=== PATIENT | male | born 1945 | race Caucasian/White ===

== ENCOUNTER 2021-06-24 03:42 | Inpatient (IN) | payer MEDICARE ==
[2021-06-24] VITALS (11 sets, daily range): BP systolic 125–153; BP diastolic 72–95
[~2021-06-24] VITALS: Ht 170.2 cm; Wt 91.8 kg
[2021-06-24] MEDS ORDERED: CARV3 PO (04:08)
[2021-06-24] MEDS ORDERED: FURO40 PO (04:08)
[2021-06-24] MEDS ORDERED: LISI-892 PO (04:08)
[2021-06-24] MEDS ORDERED: ATOR40TA28 PO (04:08)
[2021-06-24] MEDS ORDERED: ASPI-1450 PO (04:08)
[2021-06-24 04:11] LABS: GLUCOSE,POINT OF CARE 102 MG/DL (70-110)
[2021-06-24 04:12] LABS: COVID AG,FIA SOURCE NASOPHARYNGEAL
[2021-06-24 04:27] LABS: BASOPHILS % (AUTO) 0.9 % (0.0-2.0); HEMATOCRIT 37.8 % (41-53); HEMOGLOBIN 12.1 g/dL (13.5-17.5); LYMPHOCYTES # (AUTO) 0.8 K/uL (1.0-4.8); LYMPHOCYTES % (AUTO) 15.9 % (22.0-44.0); MEAN CORPUSCULAR HEMOGLOBIN 27.8 pg (26.0-34.0); MEAN CORPUSCULAR HGB CONC 32.2 G/dL (31.0-37.0); MEAN CORPUSCULAR VOLUME 86 fL (80-100); MONOCYTES # (AUTO) 0.6 K/uL (0.1-1.0); MONOCYTES % (AUTO) 12.1 % (2.0-9.0); NEUTROPHILS # (AUTO) 3.6 K/uL (1.8-7.7); NEUTROPHILS % (AUTO) 69.1 % (40.0-70.0); RED BLOOD CELL COUNT(AUTO) 4.37 MIL/uL (4.50-5.90); RED CELL DISTRIBUTION WIDTH 17.5 % (11.5-14.5)
[2021-06-24 04:59] LABS: ALBUMIN 3.1 g/dL (3.4-5.0); BILIRUBIN,TOTAL 0.8 mg/dL (0.1-1.0); CALCIUM, TOTAL 9.7 mg/dL (8.8-10.5); CREATININE 1.43 mg/dL (0.60-1.30); POTASSIUM 4.1 mmol/L (3.5-5.1); TOTAL PROTEIN, SERUM 7.3 g/dL (6.4-8.2)
[2021-06-24 05:25] LABS: PLATELET COUNT (AUTO) 84 K/uL (150-450)
[2021-06-24 05:30] LABS: INR 1.3 (0.9-1.1); PROTHROMBIN TIME 13.5 SEC (9.4-11.6)
[2021-06-24] MEDS ORDERED: ACETAMINOPHEN 325 MG TABLET PO PRN ×2 (06:00→07:30)
[2021-06-24] MEDS ORDERED: 0.9% SODIUM CHLORIDE 10 ML SYRINGE IVP PRN (06:00)
[2021-06-24] MEDS ORDERED: ONDANSETRON HCL 4 MG/2 ML VIAL IVP PRN (06:00)
[2021-06-24] MEDS ORDERED: IPRATROPIUM BROMIDE 0.5 MG/2.5 ML NEB SOLUTION NEB PRN (07:30)
[2021-06-24] MEDS ORDERED: ALBUTEROL SULFATE 2.5 MG/0.5 ML NEB SOLUTION NEB PRN (07:30)
[2021-06-24] MEDS ORDERED: INSULIN LISPRO 100 UNITS/ML SQ PRN (07:45)
[2021-06-24] MEDS ORDERED: DEXTROSE 50%-WATER 25 GM/50 ML SYRINGE IVP PRN (07:45)
[2021-06-24 07:56] LABS: GLUCOSE,POINT OF CARE 92 MG/DL (70-110)
[2021-06-24] MEDS ORDERED: HEPARIN SODIUM,PORCINE 5,000 UNITS/ML VIAL SQ SCH (08:00)
[2021-06-24] MEDS: FAMOTIDINE 20 MG TABLET PO SCH (08:07)
[2021-06-24] MEDS: ASPIRIN 81 MG CHEWABLE TABLET PO SCH (08:07)
[2021-06-24] MEDS: BUMETANIDE 0.25 MG/ML 4 ML VIAL IVP SCH ×2 (08:07→21:00)
[2021-06-24] MEDS: DOCUSATE SODIUM 100 MG CAPSULE PO SCH ×2 (08:07→20:05)
[2021-06-24] MEDS ORDERED: PredniSONE 20 MG TABLET PO SCH (09:00)
[2021-06-24] MEDS ORDERED: HEPARIN SODIUM 25000 UNITS/D5W 250 ML IV SCH (11:30)
[2021-06-24] MEDS ORDERED: FUROSEMIDE 20 MG/2 ML VIAL IVP ONE (11:30)
[2021-06-24] MEDS ORDERED: CARVEDILOL 3.125 MG TABLET PO SCH (11:30)
[2021-06-24] MEDS: SODIUM CHLORIDE 0.9% 1,000 ML IV SCH (12:45)
[2021-06-24] MEDS ORDERED: SODIUM BICARBONATE 50 MEQ/50 ML VIAL ONE (12:49)
[2021-06-24] MEDS ORDERED: HEPARIN SODIUM 1000 UNITS/NS 1,000 ML ONE (12:49)
[2021-06-24] MEDS ORDERED: IOHEXOL 300 MG/ML 100 ML VIAL ONE (12:49)
[2021-06-24] MEDS ORDERED: LIDOCAINE/PF 1% 30 ML VIAL ONE (12:49)
[2021-06-24] MEDS ORDERED: IOHEXOL 300 MG/ML 50 ML VIAL ONE (12:49)
[2021-06-24] MEDS ORDERED: IOHEXOL 300 MG/ML 150 ML VIAL ONE (12:49)
[2021-06-24] MEDS ORDERED: METOPROLOL TARTRATE 5 MG/5 ML VIAL ONE (14:06)
[2021-06-24] MEDS ORDERED: FentaNYL CITRATE PF 100 MCG/2 ML VIAL ONE ×2 (14:07→14:20)
[2021-06-24] MEDS ORDERED: MIDAZOLAM HCL 2 MG/2 ML VIAL ONE ×2 (14:07→14:20)
[2021-06-24] MEDS ORDERED: NALOXONE HCL 0.4 MG/ML VIAL ONE (14:23)
[2021-06-24] MEDS ORDERED: FLUMAZENIL 0.1 MG/ML 5 ML VIAL IVP ONE (14:23)
[2021-06-24] MEDS ORDERED: MIDAZOLAM HCL 2 MG/2 ML VIAL IVP ONE ×2 (14:30)
[2021-06-24] MEDS ORDERED: FentaNYL CITRATE PF 100 MCG/2 ML VIAL IVP ONE ×2 (14:30)
[2021-06-24] MEDS ORDERED: HEPARIN SODIUM 1000 UNITS/NS 1,000 ML IARTER ONE (14:30)
[2021-06-24] MEDS ORDERED: SODIUM CHLORIDE 0.9% 500 ML IV ONE (14:30)
[2021-06-24] MEDS ORDERED: LIDOCAINE 1% 30 ML/SOD BICARB 8.4% 4 ML SQ ONE (14:30)
[2021-06-24] MEDS ORDERED: IOHEXOL 300 MG/ML 150 ML VIAL IARTER ONE (14:30)
[2021-06-24 15:01] LABS: GLUCOMETER DEV NAME(LOC) 5N.1C; GLUCOSE,POINT OF CARE 89 MG/DL (70-110)
[2021-06-24 18:46] LABS: GLUCOMETER DEV NAME(LOC) 5N.1C; GLUCOSE,POINT OF CARE 76 MG/DL (70-110)
[2021-06-24] MEDS: ATORVASTATIN CALCIUM 40 MG TABLET PO SCH (20:05)
[2021-06-24] MEDS: SACUBITRIL/VALSARTAN 24-26 MG TABLET PO SCH (20:05)
[2021-06-24] MEDS: CARVEDILOL 12.5 MG TABLET PO SCH (20:05)
[2021-06-25 00:01] VITALS: BP 106/59
[2021-06-25 01:41] LABS: GLUCOMETER DEV NAME(LOC) 5N.1C; GLUCOSE,POINT OF CARE 154 MG/DL (70-110)
[2021-06-25 04:16] VITALS: BP 137/54
[2021-06-25] MEDS: SODIUM CHLORIDE 0.9% 1,000 ML IV SCH ×2 (05:56→13:28)
[2021-06-25 06:07] LABS: GLUCOMETER DEV NAME(LOC) 5N.1C; GLUCOSE,POINT OF CARE 109 MG/DL (70-110)
[2021-06-25 06:57] LABS: BASOPHILS % (AUTO) 0.5 % (0.0-2.0); EOSINOPHILS % (AUTO) 1.5 % (1.0-6.0); HEMATOCRIT 38.3 % (41-53); HEMOGLOBIN 12.3 g/dL (13.5-17.5); LYMPHOCYTES # (AUTO) 0.7 K/uL (1.0-4.8); LYMPHOCYTES % (AUTO) 13.6 % (22.0-44.0); MEAN CORPUSCULAR HEMOGLOBIN 27.9 pg (26.0-34.0); MEAN CORPUSCULAR HGB CONC 32.3 G/dL (31.0-37.0); MEAN CORPUSCULAR VOLUME 87 fL (80-100); MONOCYTES # (AUTO) 0.5 K/uL (0.1-1.0); MONOCYTES % (AUTO) 10.5 % (2.0-9.0); NEUTROPHILS # (AUTO) 3.8 K/uL (1.8-7.7); NEUTROPHILS % (AUTO) 73.9 % (40.0-70.0); PLATELET COUNT (AUTO) 97 K/uL (150-450); RED BLOOD CELL COUNT(AUTO) 4.42 MIL/uL (4.50-5.90)
[2021-06-25 07:07] LABS: BILIRUBIN,TOTAL 1.1 mg/dL (0.1-1.0); CALCIUM, TOTAL 9.6 mg/dL (8.8-10.5); CREATININE 1.38 mg/dL (0.60-1.30); TOTAL PROTEIN, SERUM 7.1 g/dL (6.4-8.2)
[2021-06-25 07:19] VITALS: BP 136/76
[2021-06-25] MEDS: DOCUSATE SODIUM 100 MG CAPSULE PO SCH ×2 (09:19→20:33)
[2021-06-25] MEDS: SACUBITRIL/VALSARTAN 24-26 MG TABLET PO SCH ×2 (09:19→20:33)
[2021-06-25] MEDS: ASPIRIN 81 MG CHEWABLE TABLET PO SCH (09:19)
[2021-06-25] MEDS: FAMOTIDINE 20 MG TABLET PO SCH (09:19)
[2021-06-25] MEDS: CARVEDILOL 12.5 MG TABLET PO SCH ×2 (09:19→20:32)
[2021-06-25 11:27] VITALS: BP 156/82
[2021-06-25] MEDS: BUMETANIDE 0.25 MG/ML 4 ML VIAL IVP SCH ×2 (13:29→20:33)
[2021-06-25] MEDS: DIGOXIN 250 MCG/ML 2 ML AMP IVP SCH (13:29)
[2021-06-25 15:25] VITALS: BP 156/71
[2021-06-25 16:56] LABS: GLUCOMETER DEV NAME(LOC) 5S.2B; GLUCOSE,POINT OF CARE 111 MG/DL (70-110)
[2021-06-25 17:21] LABS: GLUCOMETER DEV NAME(LOC) 5S.2B; GLUCOSE,POINT OF CARE 102 MG/DL (70-110)
[2021-06-25 20:10] VITALS: BP 131/55
[2021-06-25] MEDS: ATORVASTATIN CALCIUM 40 MG TABLET PO SCH (20:33)
[2021-06-26 00:29] VITALS: BP 126/58
[2021-06-26 04:17] VITALS: BP 119/66
[2021-06-26 06:02] LABS: GLUCOMETER DEV NAME(LOC) 5N.1C; GLUCOSE,POINT OF CARE 126 MG/DL (70-110)
[2021-06-26 06:46] LABS: GLUCOMETER DEV NAME(LOC) 5N.1C; GLUCOSE,POINT OF CARE 108 MG/DL (70-110)
[2021-06-26 07:22] VITALS: BP 130/78
[2021-06-26] MEDS: DOCUSATE SODIUM 100 MG CAPSULE PO SCH (08:31)
[2021-06-26] MEDS: ASPIRIN 81 MG CHEWABLE TABLET PO SCH (08:32)
[2021-06-26] MEDS: FAMOTIDINE 20 MG TABLET PO SCH (08:32)
[2021-06-26] MEDS: CARVEDILOL 12.5 MG TABLET PO SCH (08:32)
[2021-06-26] MEDS: BUMETANIDE 0.25 MG/ML 4 ML VIAL IVP SCH (08:32)
[2021-06-26] MEDS: SACUBITRIL/VALSARTAN 24-26 MG TABLET PO SCH (08:32)
[2021-06-26] MEDS: DIGOXIN 250 MCG/ML 2 ML AMP IVP SCH (08:33)
[2021-06-26] MEDS: SODIUM CHLORIDE 0.9% 1,000 ML IV SCH (08:33)
[2021-06-26 11:05] VITALS: BP 148/88
[2021-06-26 12:25] LABS: GLUCOMETER DEV NAME(LOC) 5S.2B; GLUCOSE,POINT OF CARE 137 MG/DL (70-110)
== END 2021-06-26 14:48 | disposition home or self-care (01) | DRG 286 ==
LOC: EMS 03:43 → 5S 05:00
PROVIDERS: ADMIT Internal Medicine; ATTEND Internal Medicine
PROC: 4A023N7 Measurement of Cardiac Sampling and Pressure, Left Heart, Percutaneous Approach (ICD-10-PCS; principal; 2021-06-24)
PROC: B211YZZ Fluoroscopy of Multiple Coronary Arteries using Other Contrast (ICD-10-PCS; 2021-06-24)
PROC: B215YZZ Fluoroscopy of Left Heart using Other Contrast (ICD-10-PCS; 2021-06-24)
PROC: B41FYZZ Fluoroscopy of Right Lower Extremity Arteries using Other Contrast (ICD-10-PCS; 2021-06-24)
DX: I11.0 Hypertensive heart disease with heart failure (principal); I50.23 Acute on chronic systolic (congestive) heart failure; I25.110 Atherosclerotic heart disease of native coronary artery with unstable angina pectoris; I42.0 Dilated cardiomyopathy; E11.9 Type 2 diabetes mellitus without complications; E78.5 Hyperlipidemia, unspecified; J44.9 Chronic obstructive pulmonary disease, unspecified; F17.210 Nicotine dependence, cigarettes, uncomplicated; E78.00 Pure hypercholesterolemia, unspecified; Z96.659 Presence of unspecified artificial knee joint; Z20.822 Contact with and (suspected) exposure to COVID-19; E66.01 Morbid (severe) obesity due to excess calories; I45.10 Unspecified right bundle-branch block; Z86.73 Personal history of transient ischemic attack (TIA), and cerebral infarction without residual deficits; Z68.31 Body mass index [BMI] 31.0-31.9, adult
CPT/HCPCS: 80053; 82550; 82962; 83880; 84484; 85025; 85610; 85730; 87081; 93005; 93306; 97162; 99285; J1160; J1644; J1940; J2250; J2310; J3010; J3490; J7030; Q9967